=== PATIENT | male | born 1990 | race Two or more races ===

== ENCOUNTER 2017-05-22 07:39 | Emergency (ER) | payer MEDICAID ==
--- NOTE | 2017-05-22 07:41 | EDPHY ---
H & P HPI/ROS: CHIEF COMPLAINT: Seizure HISTORY OF PRESENT ILLNESS: The patient is a 26 y/o male arriving via EMS after a witnessed seizure at work this morning. Per EMS, coworkers witnessed a 1- minute tonic-clonic seizure. He was postictal for EMS en route here. The patient tells me he has no known history of seizures, but does drink alcohol daily. His last alcohol use was around 01:00 this morning, almost 8 hours ago. He is quite anxious to get back to work during assessment and somewhat reluctant to stay here and answer all my questions. All he can tell me about the event is that he "couldn't breath." He used one dose of ibuprofen yesterday , but denies any other medications or drug use. He is normally healthy. History limited as patient is unable to remember most of the events of this morning. REVIEW OF SYSTEMS: A ten point review of systems was performed and is negative with the exception of the items mentioned in the HPI. Past medical history: Denies Past surgical history: Denies Family history: Noncontributory. No history of seizure disorder. Social history: Works at [email or web address]. Heavy alcohol use, at least a 6-pack of beer daily. Occasionally smokes marijuana. Denies illicit drug use. Family lives in [place]. General Appearance: Alert. Vital signs reviewed. HR 122. Initial BP 140/100. Slightly tremulous. Head: Normocephalic, atraumatic. Eyes: Pupils equal and round, no conjunctival injection, no discharge. Anicteric. ENT, Mouth: Mucous membranes are moist, no oropharyngeal erythema or edema. No tongue abrasion or laceration. Neck: No lymphadenopathy, supple. Respiratory: Lungs are clear to auscultation; no wheezes, rales, or rhonchi. Cardiovascular: Tachycardic regular rate and rhythm; no murmur, rub, or gallop. Gastrointestinal: Abdomen is soft and nontender, no masses or organomegaly, bowel sounds normal. Skin: Warm and dry, no rashes on exposed skin, normal color. Back: Nontender to palpation over the thoracolumbar spine. No CVAT. Extremities: No lower extremity edema, no calf tenderness or swelling. Neurological: Alert and oriented but confused at time of initial exam. Moving all four extremities easily and equally. CN 2-12 examined and intact. Strength 5/5 all major motor groups. Sensation intact to LT over all 4 extremities. Psychiatric: Normal affect. No agitation, but confused about why he is here, anxious to return to work. Constitutional: Initial Vital Signs Temperature (C) 36.8 C 05/22/17 07:44 Heart Rate 111 H 05/22/17 07:44 Respiratory Rate 16 05/22/17 07:44 Blood Pressure 140/100 H 05/22/17 07:44 O2 Sat (%) 96 05/22/17 07:44 O2 Delivery Mode Room Air Allergies/Adverse Reactions: No Known Allergies Allergy (Unverified 05/22/17 07:44) Home Medications: Medication Instructions Recorded NK [No Known Home Meds] 05/22/17 Medical Decision Making - Diagnostics Imaging: Discussed imaging studies w/ call center dispatcher Radiologist, I viewed and interpreted images myself ED Course/Re-evaluation: This is a 26 y/o male with history of daily alcohol use who presents for evaluation after a witnessed seizure and subsequent confusion this morning. He is initially quite anxious to return to work and still seems mildly postictal as he cannot remember going to work today or subsequent events. His exam is otherwise unremarkable and he is neurovascularly intact. Plan for head CT, labs , EtOH level, 1mg IV Ativan. Normal head CT. He remained hypertensive in ED. This is likely secondary to alcohol withdrawal. Reevaluated patient and discussed findings. He is completely alert and oriented and denies any complaints. I believe this is most likely an alcohol withdrawal seizure. He tells me he gets shaky when he stops drinking, but confirms that he has never had a seizure before. He will be referred to a PCP and neurologist for follow up. He does not drive. He's also been given resources for alcohol abuse should he decide to withdraw or enter rehab. Return precautions discussed. He agrees with plan for discharge. Differential Diagnosis: I considered ddx of seizure including but not limited to alcohol withdrawal, epilepsy, tumor, ICH, electrolyte disorder. - Data Points Laboratory Results: Laboratory Results 05/22/17 07:40 05/22/17 07:40 Medications Given: Discontinued Medications Lorazepam (Ativan Injection) 1 mg IVP EDNOW ONE Stop: 05/22/17 08:03 Last Admin: 05/22/17 08:06 Dose: 1 mg Departure - Departure Disposition: Home, Routine, Self-Care Clinical Impression: Seizure Alcohol withdrawal Qualifiers: Complication of substance-induced condition: with unspecified complication Qualified Code(s): F10.239 - Alcohol dependence with withdrawal, unspecified Condition: Good Instructions: Alcohol Withdrawal (ED), New-Onset Seizure in Adults (ED) Additional Instructions: 1. Avoid abuse of alcohol. Please follow up with the [facility] or [facility] if you want assistance with your alcohol use. 2. You should not drive, operate machinery, or perform any other task that could put you or others at risk until you are cleared by neurologist. 3. Follow up with Dr. Alvarenga, neurologist, in the next week. I recommend calling today to schedule a follow up appointment. Tell them you are an ED follow up patient. 4. Establish care with a local primary care provider in the next week. You've been referred to Dr. Garcia. 5. Return to the ED for recurrent seizures, severe headache, weakness or numbness on one side of your body, or any other worsening of condition. Referrals: Maurice Alvarenga MD [Medical Doctor] - As per Instructions Myra Garcia MD [Medical Doctor] - As per Instructions [facility],. [Clinic] - As per Instructions [facility] 24 Hours [Outside] - As per Instructions Report Scribed for: Tiffanie Barajas Report Scribed by: Galilea Mac Date of Report: 05/22/17 Time of Report: 08:02 Physician Review and Approval Statement: 05/22/17 07:40 Portions of this note were transcribed by the medical office secretary. I, Dr. Tiffanie Barajas, personally performed the history, physical exam, and medical decision- making; and confirmed the accuracy of the information in the transcribed note.
[2017-05-22] MEDS ORDERED: LORazepam 2 MG/ML INJ IVP ONE (08:02)
[2017-05-22 08:10] LABS: PLATELET COUNT 138 10^3/uL (150-400)
[2017-05-22 09:51] VITALS: BP 135/110; PULSE 97; RESP 18; TEMP 98.6; O2SAT 94
== END 2017-05-22 09:55 | disposition home or self-care (01) ==
LOC: EDSEX 07:39
DX: R56.9 Unspecified convulsions (principal); F10.239 Alcohol dependence with withdrawal, unspecified
CPT/HCPCS: 96374; G0480; J2060

== ENCOUNTER 2017-12-03 05:39 | Emergency (ER) | payer MEDICAID, OTHER ==
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
[2017-12-03 06:56] VITALS: BP 120/89
== END 2017-12-03 07:39 | disposition home or self-care (01) ==
LOC: EDUNIT# → EDBD
PROC: 0HQKXZZ Repair Right Lower Leg Skin, External Approach (ICD-10-PCS; principal; 2017-12-03)
DX: S82.152B Displaced fracture of left tibial tuberosity, initial encounter for open fracture type I or II (principal); S81.811A Laceration without foreign body, right lower leg, initial encounter; V47.1XXA Car passenger injured in collision with fixed or stationary object in nontraffic accident, initial encounter; Y92.410 Unspecified street and highway as the place of occurrence of the external cause
CPT/HCPCS: L1830